=== PATIENT | male | born 1940 | race American Indian/Alaskan Native ===

== ENCOUNTER 2019-05-05 02:42 | Inpatient (IN) | payer MEDICARE, MEDICAID, OTHER ==
[2019-05-05] VITALS (18 sets, daily range): BP systolic 82–119; BP diastolic 52–80
[~2019-05-05] VITALS: Ht 165.1 cm; Wt 63.1 kg
--- NOTE | 2019-05-05 03:00 | NUR ---
SEE CODE BLUE SHEET IN CHART. 0250 - CPR STOPPED, RADIAL PULSE STRONG AND BOUNDING, HR 135 CERTIFIED MEDICAL DOSIMETRIST 0259 - INTUBATED, ETT SIZE 8, 22 AT TEETH; HR 107, 96%
[2019-05-05] MEDS ORDERED: propofol 1000mg/100ml bottle 100 ML IV ONE (03:07)
[2019-05-05 03:17] LABS: BASOPHILS # (AUTO) 0.1 X10'3 (0-0.2); HEMOGLOBIN 14.5 g/dl (14.0-17.9)
[2019-05-05 03:21] LABS: BASOPHILS % (AUTO) 0.4 % (0-1); EOSINOPHILS # (AUTO) 0.3 X10'3 (0-0.9); EOSINOPHILS % (AUTO) 1.5 % (0-6); HEMATOCRIT 43.6 % (42.0-52.0); LYMPHOCYTES # (AUTO) 9.2 X10'3 (1.1-4.8); LYMPHOCYTES % (AUTO) 50.4 % (21-51); MEAN CORPUSCULAR HEMOGLOBIN 30.6 PG (27.0-31.0); MEAN CORPUSCULAR HGB CONC 33.2 g/dL (33.0-36.5); MEAN CORPUSCULAR VOLUME 92.4 FL (78-98); MEAN PLATELET VOLUME 9.6 FL (7.4-10.4); MONOCYTES # (AUTO) 0.7 X10'3 (0-0.9); MONOCYTES % (AUTO) 3.8 % (2-12); NEUTROPHILS % (AUTO) 43.9 % (42-75); PLATELET COUNT 173 X10'3 (140-440); RED BLOOD COUNT 4.72 X10'6 (4.70-6.10); WHITE BLOOD COUNT 18.3 X10'3 (4.5-11.0)
[2019-05-05] MEDS ORDERED: normal saline 1000ml 1,000 ML IVB ONE ×2 (03:26→03:50)
[2019-05-05] MEDS ORDERED: midazolam 100mg in NS 100ml 100 ML IV PRN (03:29)
[2019-05-05] MEDS ORDERED: FENTANYL-0.9 % NACL/PF 100 ML IV PRN (03:29)
[2019-05-05] MEDS ORDERED: normal saline 1000ml 1,000 ML IV PRN (03:29)
[2019-05-05] MEDS ORDERED: magnesium 4gm in 100ml NS 100 ML IV PRN (03:30)
[2019-05-05] MEDS ORDERED: ondansetron/PF 4mg/2ml inj IV PRN (03:30)
[2019-05-05] MEDS ORDERED: albuterol 2.5 MG/3 ML nebule NEB PRN ×2 (03:30)
[2019-05-05] MEDS ORDERED: MIDAZolam 5mg/ml 2ml vial IV ONE (03:30)
[2019-05-05] MEDS ORDERED: sodium phosphate inj. 15 MMOL in dextrose 5%-water 150 ML IV PRN (03:30)
[2019-05-05] MEDS ORDERED: sodium phosphate inj. 30 MMOL in dextrose 5%-water 250 ML IV PRN (03:30)
[2019-05-05] MEDS ORDERED: Neutra Phos packet PO PRN (03:30)
[2019-05-05] MEDS ORDERED: potassium CL 10mEq/100ml bag 100 ML IV PRN ×2 (03:30)
[2019-05-05] MEDS ORDERED: fentaNYL/PF 50MCG/1 ML 2ML syringe IV ONE (03:30)
[2019-05-05] MEDS ORDERED: morphine 2 MG/ML inj. syringe IV PRN (03:30)
[2019-05-05] MEDS ORDERED: fentaNYL/PF 50MCG/1 ML 2ML syringe IV PRN (03:30)
[2019-05-05] MEDS ORDERED: magnesium Cl slow-release 64mg tablet PO PRN (03:30)
[2019-05-05] MEDS ORDERED: K, MAG and/or Phos replacement - Verify level? MC SCH (03:30)
[2019-05-05] MEDS ORDERED: midazolam 2 mg/2 ml injection IV ONE (03:30)
[2019-05-05] MEDS ORDERED: magnesium 2GM in 50ml NS 50 ML IV PRN (03:30)
[2019-05-05] MEDS ORDERED: ipratropium/albuterol 3ml nebule NEB PRN ×2 (03:30)
[2019-05-05] MEDS ORDERED: acetaminophen 325mg tablet PO PRN ×2 (03:30)
[2019-05-05] MEDS ORDERED: potassium Cl 20mEq/100mL bag 100 ML IV PRN ×2 (03:30)
[2019-05-05 03:32] LABS: PARTIAL THROMBOPLASTIN TIME 36 SECONDS (22-32)
[2019-05-05 03:33] LABS: ALANINE AMINOTRANSFERASE 33 U/L (12-78); ALBUMIN 3.5 G/DL (3.4-5.0); ALBUMIN/GLOBULIN RATIO 0.9 (1.1-1.5); ALKALINE PHOSPHATASE 166 IU/L (46-116); ANION GAP 10 (8-16); BILIRUBIN,TOTAL 1.1 MG/DL (0.1-1.0); BLOOD UREA NITROGEN 17 MG/DL (7-18); BUN/CREATININE RATIO 14.3 (5.4-32.0); CALCIUM 8.1 MG/DL (8.5-10.1); CHLORIDE 107 MMOL/L (99-107); CREATININE 1.19 MG/DL (0.60-1.10); GLUCOSE 270 MG/DL (70-104); SODIUM 140 MMOL/L (135-145); TOTAL CARBON DIOXIDE 23.1 MMOL/L (24-32); TOTAL PROTEIN 7.6 G/DL (6.4-8.2); eGFR 59 ML/MIN
[2019-05-05 03:41] LABS: ABG BASE EXCESS -14.7 mmol/L (-2.0-3.0); ABG HCO3 12.3 mmol/L (22.0-26.0); ABG OXYGEN SATURATION 94.4 % (95-98); ABG PCO2 (T) 31.4 mmHg (35.0-45.0); ABG PH (T) 7.206 (7.350-7.450); ABG PO2 (T) 81.2 mmHg (83-108); FCOHb 0.6 % (0.5-1.5); FMetHb 0.2 % (0.3-1.12); FO2Hb 93.6 % (94-100); MINUTE VOLUME 9 L/min; PATIENT TEMPERATURE 35.9; PEEP 5 cm H2O; RESPIRATORY RATE 16 b/min; RESPIRATORY RATE (OBSERVED) 18 b/min; TIDAL VOLUME 450 mL; TOTAL HEMOGLOBIN 13.9 G/dl (14.0-17.9)
--- NOTE | 2019-05-05 03:41 | NUR ---
PROPOFOL WAS STARTED AT 0307 AND DISCONTINUED AT 0326 FOR DROP IN BP/NS BOLUSING. MADE AWARE.
[2019-05-05 03:49] LABS: PLATELET ESTIMATE NORMAL; TOTAL CELLS COUNTED 100
[2019-05-05] MEDS: normal saline 1000ml 1,000 ML IV SCH ×3 (03:49→21:17)
--- NOTE | 2019-05-05 03:50 | NUR ---
BOLUS INFUSED/ADMIT MD HERE AND I WAS INSTRUCTED TO START ANOTHER LITER OF NS AND BOLUS THE BP REMAINS LOW
[2019-05-05 03:51] LABS: ASPARTATE AMINO TRANSFERASE 46 U/L (10-37)
[2019-05-05] MEDS ORDERED: insulin regular, human inj. 100 UNITS in normal saline 100ml IV soln 100 ML IV SCH ×2 (04:00)
[2019-05-05] MEDS ORDERED: etomidate 2mg/ml inj. ONE (04:00)
[2019-05-05] MEDS ORDERED: clindamycin 600mg/D5W 50ml 50 ML IV SCH (04:00)
[2019-05-05] MEDS ORDERED: dextrose 50%-water 50ml dispensing syringe IV PRN (04:00)
[2019-05-05] MEDS ORDERED: CLINDAMYCIN/D5W 900mg/50ml 50 ML IV SCH ×2 (04:00→04:20)
[2019-05-05] MEDS ORDERED: meperidine/PF 50mg/ml syringe IV PRN (04:00)
[2019-05-05 04:10] LABS: AMYLASE 61 U/L (25-115); LIPASE 85 U/L (73-393)
[2019-05-05] MEDS ORDERED: piperacillin/tazo 3.375gm/50ml 50 ML IV SCH ×2 (04:30→05:47)
[2019-05-05] MEDS ORDERED: VANCOMYCIN 1gm/H2O 200ml PB 200 ML IV ONE (04:30)
[2019-05-05 04:49] LABS: CLARITY,URINE CLOUDY (Clear); COLOR,URINE RED (Yellow); GLUCOSE, URINE 100 mg/dl (Neg); KETONES,URINE NEGATIVE (Neg); LEUKOCYTE ESTERASE ,URINE MODERATE (Neg); NITRITES, URINE NEGATIVE (Neg); OCCULT BLOOD,URINE LARGE (Neg); PH,URINE 6.5 (4.8-8.0); PROTEIN,URINE 100 mg/dl (Neg)
[2019-05-05 04:52] LABS: UA COLLECTION TYPE FOLEY CATH
[2019-05-05 04:58] LABS: RBC,URINE TNTC /HPF (0-2)
[2019-05-05] MEDS ORDERED: INSU100I31 SUBCUT (04:58)
[2019-05-05] MEDS ORDERED: CLOP75TA35 PO (04:58)
[2019-05-05] MEDS ORDERED: ASPI81TA52 PO (04:58)
[2019-05-05] MEDS ORDERED: CHOL200052 PO (04:58)
[2019-05-05] MEDS ORDERED: LISI-600 PO (04:58)
[2019-05-05] MEDS ORDERED: NITR100C PO (04:58)
[2019-05-05] MEDS ORDERED: METF500T PO (04:58)
[2019-05-05 04:59] LABS: BACTERIA,URINE FEW /HPF (Neg); FINE GRANULAR CAST 0-3 /LPF (NEGATIVE); SQUAMOUS EPITHELIAL CELL,UR FEW /LPF (FEW)
--- NOTE | 2019-05-05 05:18 | NUR ---
DR BRAUN TALKED TO DAUGHTER REGARDING CONDITION AND POTENTIAL OUTCOME. DAUGHTER VERBALIZED UNDERSTANDING OF PT UNLIKELY COME OFF VENTILATOR OR REGAINING OF CONSCIOUSNESS SO NO CENTRAL LINE TO BE PLACED, DAUGHTER IN AGREEMENT. DAUGHTER STATES SHE HAD DONE CPR 15 MINUTES PRIOR TO EMS ARRIVAL.
[2019-05-05] MEDS ORDERED: morphine 10mg/ml inj. IV PRN (05:50)
[2019-05-05] MEDS ORDERED: VANCOMYCIN 1gm/H2O 200ml PB 200 ML IV SCH (06:00)
--- NOTE | 2019-05-05 06:15 | NUR ---
Patient in room CICU 2007. I have received report from overnight cashier and had the opportunity to ask questions and assume patient care.
--- NOTE | 2019-05-05 06:28 | NUR ---
0540-Patient in room CICU 2007. I have received report from SOCIAL WORKER AIDE and had the opportunity to ask questions and assume patient care. Upon arrival to unit the decision had been made by family and MARY Enciso that he would be changed to comfort care and cooling would not be done. Family is at beside. Problems reprioritized. Patient report given, questions answered & plan of care reviewed with Aleah SY.
[2019-05-05] MEDS ORDERED: heparin, porcine 5000 units/ml vial SQ SCH (08:00)
[2019-05-05] MEDS ORDERED: famotidine/PF 10 mg/ml inj IV SCH (08:00)
[2019-05-05] MEDS ORDERED: insulin Lispro (HumaLOG) vial - multi-dose SQ SCH (09:00)
[2019-05-05] MEDS ORDERED: sod chloride 0.9% 10ml flush syringe IV ONE (14:00)
[2019-05-05] MEDS ORDERED: epiNEPHrine 0.1mg/ml 10ml syringe ONE (14:00)
--- NOTE | 2019-05-05 18:06 | NUR ---
Problems reprioritized. Patient report given, questions answered & plan of care reviewed with oncoming shift.
--- NOTE | 2019-05-05 18:20 | NUR ---
assumed care from flynn SY no questions or concerns after assuming care
--- NOTE | 2019-05-05 19:40 | NUR ---
patient appears to be at rest family members at bedside rr even un labored no observable s/s of acute stress or pain at this time will continue to monitor
--- NOTE | 2019-05-05 21:32 | NUR ---
patient appears to be resting comfortably, rr even un labored eyes are closed covers on no observable s/s of acute stress /pain observable will continue to monitor
--- NOTE | 2019-05-05 23:11 | NUR ---
patient appears to be resting comfortably eyes closed covers on rr even un labored no observable s/s of acute stress or pain observed at this time will continue to monitor
[2019-05-06] VITALS: BP 86/48
[2019-05-06 01:00] VITALS: BP 82/51
--- NOTE | 2019-05-06 01:05 | NUR ---
PATIENT IN BED COVERS ON EYES CLOSED RR EVEN UN LABORED NO OBSERVABLE S/S OF ACUTE STRESS OR PAIN OBSERVABLE AT THIS TIME WILL CONTINUE TO MONITOR
[2019-05-06 02:00] VITALS: BP 120/70
[2019-05-06] MEDS ORDERED: scopolamine 1.5mg patch.TD72 TD SCH (02:10)
--- NOTE | 2019-05-06 02:15 | NUR ---
PATIENT IS APPEARING IN PAINFUL DISCOMFORT WHEN RE POSITIONING WILL GIVE PAIN MEDICINE FOR COMFORT AND CONTINUE TO MONITOR
[2019-05-06 03:00] VITALS: BP 84/56
--- NOTE | 2019-05-06 03:14 | NUR ---
PATIENTS BELONGINGS LIST 2 SHIRTS AND TOILETRY BAG WITH WALLET CARDS IN IT, MEDICATIONS TAKEN TO PHARMACY
--- NOTE | 2019-05-06 03:24 | NUR ---
SBAR TO RJ SY NO QUESTIONS OR CONCERNS AFTER ASSUMING CARE PATIENT IS BEING TRANSFERRED TO BED 4003
--- NOTE | 2019-05-06 04:00 | NUR ---
oriented to room. pt's eyes open, course breath sounds noted left more decreased. turned for skin check. will keep pt turned q2 for comfort. no sxs distress at this time.
--- NOTE | 2019-05-06 05:44 | NUR ---
pt's eyes open again. attempted oral care. pt clamped lips shut. position of comfort
--- NOTE | 2019-05-06 06:16 | NUR ---
reported to days. noted pt course breath sounds in throat. noted that family was NOT notified of transfer to 4th floor from CICU. all belongings at bedside and medications stored in RX
--- NOTE | 2019-05-06 06:17 | NUR ---
Patient in room ORTHO 4007. I have received report from Danish SY and had the opportunity to ask questions and assume patient care.
[2019-05-06] MEDS: morphine 4 MG/ML inj SYRINge IV PRN ×3 (06:46→19:31)
[2019-05-06] MEDS: mineral oil/petrolatum ophthal oint EACHEYE SCH ×3 (08:00→21:35)
[2019-05-06 10:00] VITALS: BP 101/42
--- NOTE | 2019-05-06 13:23 | NUR ---
UNABLE TO ASSESS/PT IS DYING, FAMILY BEDSIDE. Addendum: 05/06/19 at 1324 by Yamileth Glover RT Amended: Links added.
--- NOTE | 2019-05-06 18:11 | NUR ---
Patient report given to Antionette SY
--- NOTE | 2019-05-06 18:15 | NUR ---
Patient in room ORTHO 4007. I have received report from Jodi SY and had the opportunity to ask questions and assume patient care.
--- NOTE | 2019-05-06 21:20 | NUR ---
RN IS TO DOCUMENT YES TO ALL APPLICABLE AREAS Pronouncement of : 1. Time Physician Notified:[id number] 2. Date of :05/06/19 3. Time of : 21:05 4. DNR/Withdraw life support documented:YES 5. Monitor strip has been placed on chart:YES 6. Assessment process is of one-minute duration and includes following criteria: a) Patient is unresponsive to all stimuli: YES b) Pupils fixed and non-reactive:YES c) Auscultation of precordium reveals absence of heart tones:YES d) Auscultation of lungs reveals absence of breath sounds:YES e) Absence of blood pressure / all vital signs:YES f) QRS complexes are not present on monitor / EKG strip:YES g) Pacer spikes without capture:NA 4. Comments:
--- NOTE | 2019-05-06 21:34 | NUR ---
Called patients daughter Concepcion to inform that patient had .
== END 2019-05-06 21:05 | disposition expired | DRG 208 ==
LOC: EDBD 02:43 → ER 02:43 → ED HOLD 04:22 → EDBEDREQ 04:24 → CICU 2S 05:45 → ORTHO 4S 05-06 03:45
PROC: 5A1935Z Respiratory Ventilation, Less than 24 Consecutive Hours (ICD-10-PCS; principal; 2019-05-05)
PROC: 0BH17EZ Insertion of Endotracheal Airway into Trachea, Via Natural or Artificial Opening (ICD-10-PCS; 2019-05-05)
PROC: 5A12012 Performance of Cardiac Output, Single, Manual (ICD-10-PCS; 2019-05-05)
PROC: 0D9670Z Drainage of Stomach with Drainage Device, Via Natural or Artificial Opening (ICD-10-PCS; 2019-05-05)
DX: J96.01 Acute respiratory failure with hypoxia (principal); J69.0 Pneumonitis due to inhalation of food and vomit; R40.20 Unspecified coma; I69.354 Hemiplegia and hemiparesis following cerebral infarction affecting left non-dominant side; E03.9 Hypothyroidism, unspecified; I46.9 Cardiac arrest, cause unspecified; E11.22 Type 2 diabetes mellitus with diabetic chronic kidney disease; F03.90 Unspecified dementia, unspecified severity, without behavioral disturbance, psychotic disturbance, mood disturbance, and anxiety; T17.320A Food in larynx causing asphyxiation, initial encounter; I12.9 Hypertensive chronic kidney disease with stage 1 through stage 4 chronic kidney disease, or unspecified chronic kidney disease; X58.XXXA Exposure to other specified factors, initial encounter; K21.9 Gastro-esophageal reflux disease without esophagitis; J44.9 Chronic obstructive pulmonary disease, unspecified; N18.9 Chronic kidney disease, unspecified; I95.9 Hypotension, unspecified; Z51.5 Encounter for palliative care; Z87.891 Personal history of nicotine dependence; Z88.0 Allergy status to penicillin; Y93.89 Activity, other specified; Y92.89 Other specified places as the place of occurrence of the external cause; Y99.8 Other external cause status
CPT/HCPCS: 31500; 36415; 36600; 71045; 80053; 81001; 82150; 82803; 83605; 83690; 83880; 84145; 84443; 84484; 85018; 85025; 85610; 85730; 87040; 87081; 87088; 87186; 92950; 93005; 94002; 94760; 99291; G0378; J0171; J1815; J2250; J2270; J2543; J2704; J3010; J3490; J7030